=== PATIENT | female | born 1945 | race Caucasian/White ===

== ENCOUNTER → 2016-10-20 | Outpatient (CLI) | payer MEDICARE, BC ==
[2016-10-20 12:08] LABS: IGA - IMMUNOGLOBULIN A 207.12 MG/DL (70-400); IGG - IMMUNOGLOBULIN G 759.46 MG/DL (700-1600); IGM - IMMUNOGLOBULIN M 93.19 MG/DL (40-230)
[2016-10-21 03:06] LABS: FOLATE > 20.0 NG/ML (2.76-20); VITAMIN B12 - BATCH 595 PG/ML (239-931)
== END ==
LOC: LABN 11:44
PROVIDERS: ATTEND Internal Medicine Hematology & Oncology
DX: G62.0 Drug-induced polyneuropathy (principal); C50.511 Malignant neoplasm of lower-outer quadrant of right female breast; R53.83 Other fatigue; Z17.0 Estrogen receptor positive status [ER+]
CPT/HCPCS: 82607; 82746; 82784; 83090; 83883; 83921; 84155; 84165; 84439; 84443; 86334